=== PATIENT | female | born 1990 | race Two or more races ===

== ENCOUNTER 2024-12-17 08:50 | Outpatient (AMB) | payer MEDICAID, SELFPAY ==
[2024-12-17 08:59] VITALS: BP 119/77; PULSE 77; RESP 18; TEMP 36.7; O2SAT 99; BMI 23.3
--- NOTE | 2024-12-17 08:59 | ACNOTE_ITS ---
Vital Signs 12/17/24 08:59 Height 1.55 m Height Method Stated Weight 55.962 kg Weight Measurement Method Standing Scale BMI 23.3 BP 119/77 Blood Pressure Source Automatic Cuff Blood Pressure Location Left Upper Arm Position Sitting Respiration 18 Pulse 77 Pulse Source Monitor Temp 98.1 F Temp Source Temporal Artery Scan Pulse Oximetry (%) 99 Oxygen Delivery Method Room Air Allergies/Meds Allergies & Medications Allergies No Known Drug Allergies Allergy (Verified 12/17/24 09:00) MA Intake Visit Data Collection New Patient or Established: Established Patient (seen at [facility] within 3 years) Seen by Clinical Staff ONLY (RN/MA): No Pain Present Currently: No Pain scale:: 0 Pain Scale Used: Landry-Majano/Numerical [employer] Information Systems Analyst Required: No PCP or OBGYN visit in last 3 months: No Hx Now: No Do You Feel Safe at Home: Yes Authorities Contacted: N/A Smoking Status Smoking Status: Never smoker Immunization / Flu Flu Vaccine in the Last 12 Months: No Flu Vaccine Exclusion Criteria: No Exclusion Criteria Past Medical History Past Medical History NEUROLOGIC: Negative Neurological Disorders or Seizures CARDIAC: Negative Cardiac Disorders or Congestive Heart Failure RESPIRATORY: Negative Chronic Obstructive Pulmonary Disease (COPD) or Asthma GASTROINTESTINAL: Negative Gastrointestinal Disorders GENITOURINARY: Negative Genitourinary Disorders or Renal Disease ENT: Negative Cataracts ENDOCRINE: Negative Endocrine Disorders, Diabetes Mellitus Type 1, Diabetes Mellitus Type 2, Hypoglycemia, [place]'s Syndrome, Lincoln's Disease, Hyperthyroidism, Hypothyroidism, Parathyroid Disease, Pituitary Disease, Systemic Lupus Erythematosus, Syndrome of Inappropriate Antidiuretic Hormone (SIADH), Adrenal Disease or Graves' Disease HEMATOLOGIC: Negative Blood Disorders or Sickle Cell Disease OTHER HISTORY: Negative Hospitalization, Autoimmune Disease, Down Syndrome, Developmental Delay, Falls, Blood Transfusions, Anesthesia Reactions or Organ Tr ansplant Family History FAMILY HISTORY: Positive Family Surgery; Negative Family Psychiatric Problems, Family Respiratory Disorders, Family Cardiac Disorders, Family Gastrointestinal Problems, Family Cancer or Family Anesthesia Reaction Surgical History SURGICAL: Negative Coronary Artery Bypass Graft, Valve Replacement, Pacemaker, Carotid Endarterectomy, Thyroidectomy, Hysterectomy or Organ Transplant Social History SMOKING STATUS: Smoking status: Never smoker SECOND HAND EXPOSURE: second hand exposure: No ALCOHOL: Alcohol Intake: Never HOUSING: Housing: House LIVES WITH: Lives With: Children, Family and Spouse Patient Portal Questionaires Social History Living Situation History Housing: House Housing Other:: pt lives with and kids Tobacco History Smoking Status: Never smoker Second Hand Smoke Exposure: No Alcohol History Alcohol Intake: Never Domestic Abuse History Do You Feel Safe at Home: Yes Review of Systems Report any current symptoms Only answer those that you have currently: Past Medical History Past Medical History Have you ever been diagnosed with any of the following: Neurological Problems Seizures: No Cardiology Problems Congestive Heart Failure: No Respiratory Problems Chronic Obstructive Pulmonary Disease (COPD): No Asthma: No Genital/Urinary Problems Renal Disease: No Head,Eye,Nose,Throat Problems Cataracts: No Endocrine Problems Diabetes Mellitus Type 1: No Diabetes Mellitus Type 2: No Hypoglycemia: No Mark's Syndrome: No Lincoln's Disease: No Hyperthyroidism: No Hypothyroidism: No Parathyroid Disease: No Pituitary Disease: No Systemic Lupus Erythematosus: No Syndrome of Inappropriate Antidiuretic Hormone: No Adrenal Disease: No Graves' Disease: No Blood Problems Sickle Cell Disease: No Other Problems Hospitalization: No Autoimmune Disease: No Down Syndrome: No Developmental Delay: No Falls: No Blood Transfusions: No Anesthesia Reactions: No Organ Transplant: No Surgical History Carotid Endarterectomy: No Coronary Artery Bypass Graft: No Valve Replacement: No Hysterectomy: No Pacemaker: No Thyroidectomy: No History of Present Illness HPI Narrative Korina Evans is a 34 yr female with no significant PMH of cholecystitis who has presented to 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 Patient denies any fever, cough, weight loss, or night sweats. She has not recently traveled and denies any previous positive TB test. No major complaints at this time. Review of Systems Constitutional Constitutional: Reports system reviewed and no additional complaints, except as documented Objective/Exam Narrative Physical exam: General: Young female, No acute distress, cooperative, comfortable HEENT: NCAT, No JVD noted. Mucosa moist. Pupils are equal and reactive to light bilaterally Cardiovascular: Normal S1 and S2. Regular rate and rhythm. Respiratory: Lungs are clear to auscultation bilaterally. No wheezing or crackles heard. Abdomen: Soft, nontender, not distended, normal bowel sounds. Skin: Warm to touch, dry, no rashes noted Musculoskeletal: No gross injuries. Able to move all 4 extremities. No pitting edema Neuro: Alert and oriented x3. No focal neuro deficits. Psych: Normal affect and mood Assessment & Plan Diagnosis / Problem List (1) Screening-pulmonary TB: Status: Acute Assessment & Plan: Screening needed for school. Patient denies any cough, weight loss, sweats, or travel recently. No positive tests previously. Plan: -[facility] slip for quantiferon gold test Additional Assessment Internal Medicine Attending Note: Case discussed with and agree with note and management plan of Resident Karolina walsh as per Resident's Note above. Issues of concern for present visit are as follows: New patient to office. 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 We will order this today. No other acute issues. Henrique Sage MD Physician Billing New Patient New Patient: E/M Level 2-CPT 06459 Office Procedures [facility] Level of Care Nursing/Assessment Patient Status: Established Patient Nursing Assessment/Reassessment: Medication Reconciliation, Update PMH in EMR and Vital Signs Coordination of Care: Complex Care and Chronic Disease 1-5, Consent,records obtained, informed consent, Education Simp Pt/Fam, Lab and Imaging orders and Staff clarify orders Established Patient Charge Established Patient Point Assignment: 100 Established Patient Point Charge: EP Level 3 (80-115)
== END 2024-12-17 09:32 | disposition home or self-care (01) ==
LOC: HODAHC 08:50
PROVIDERS: Supervising Provider Internal Medicine
DX: Z11.1 Encounter for screening for respiratory tuberculosis (principal); Z02.0 Encounter for examination for admission to educational institution
CPT/HCPCS: 99213; G0463